=== PATIENT | male | born 1970 | race American Indian/Alaskan Native ===

== ENCOUNTER 2018-12-07 03:52 | Emergency (ER) | payer BC ==
[2018-12-07 03:59] VITALS: BP 141/89
[2018-12-07] MEDS ORDERED: NORCO 5/325 PO ONE (07:37)
[2018-12-07] MEDS ORDERED: FLEXERIL PO ONE (07:37)
[2018-12-07] MEDS ORDERED: DECADRON IM ONE (07:37)
--- NOTE | 2018-12-07 07:38 | Emergency Department Report ---
ED Back Pain/Injury HPI - General Chief Complaint: Extremity Problem,Nontraumatic Stated Complaint: LEG PAIN/NUMBNESS Time Seen by Provider: 12/07/18 07:33 Source: patient Limitations: No Limitations - History of Present Illness Initial Comments: Patient is a 48-year-old male who comes to the emergency room complaining of pain in his leg. He is denies trauma. He states that it intermittently to his lower right and lower left leg. Patient denies back pain. Patient is ambulatory and nontoxic. Vital signs are stable. He has no fever. No complaints consistent with cauda equina. Patient was given Motrin by a coworker and he states that he got some relief with that. Patient is on no medicines and denies any major medical problems. Consistency: intermittent Associated Symptoms: denies other symptoms - Related Data Previous Rx's Medication Instructions Recorded Last Taken Type Cyclobenzaprine [Flexeril] 10 mg PO TID PRN #10 tablet 12/07/18 Unknown Rx RX: predniSONE [Deltasone] 20 mg PO DAILY #5 tablet 12/07/18 Unknown Rx traMADol [Ultram] 50 mg PO Q6HR PRN #10 tablet 12/07/18 Unknown Rx Allergies Allergy/AdvReac Type Severity Reaction Status Date / Time No Known Allergies Allergy Unverified 12/07/18 04:01 ED Review of Systems ROS: Stated complaint: LEG PAIN/NUMBNESS Other details as noted in HPI Comment: All other systems reviewed and negative Constitutional: denies: chills Eyes: denies: eye pain ENT: denies: ear pain Respiratory: denies: see HPI Cardiovascular: denies: chest pain Endocrine: denies: excessive sweating Gastrointestinal: denies: nausea Genitourinary: denies: urgency Musculoskeletal: as per HPI, other. denies: back pain, joint swelling, arthralgia, myalgia Skin: denies: rash Neurological: denies: headache Psychiatric: denies: depression Hematological/Lymphatic: denies: easy bleeding ED Past Medical Hx - Past Medical History Medical history: no medical history ED Back Pain Physical Exam - Exam General: Vital signs noted. No distress. Alert and acting appropriately. Back/Abdomen: Yes Straight Leg Raise Pain (r), No Abdominal Tenderness, No Perithoracic Tenderness, No Perilumbar Tenderness, No Sacroiliac Tenderness, No Flank Tenderness Neuro: Yes Normal Sensation, Yes Normal DTR's, Yes Normal Gait, No Motor Dottie gallardo ED Course Vital Signs 12/07/18 03:57 Temperature 98.3 F Pulse Rate 82 Respiratory 18 Rate Blood Pressure 141/89 O2 Sat by Pulse 100 Oximetry ED Medical Decision Making - Medical Decision Making no trauma no s/s cauda equina neuro intact without focal neuro def ambulatory no cva tenderness vss no fever abd soft non tender pos straight leg raise medicated in ER with relief dc home with dc plan of care. Critical care attestation.: If time is entered above; I have spent that time in minutes in the direct care of this critically ill patient, excluding procedure time. ED Disposition Clinical Impression: Sciatica Disposition: DC-01 TO HOME OR SELFCARE Is pt being admited?: No Does the pt Need Aspirin: No Condition: Stable Instructions: Lumbar Radiculopathy (ED) Additional Instructions: rest warm compresses meds as ordered today follow up with pcp if persists good body mechanics Prescriptions: Cyclobenzaprine [Flexeril] 10 mg PO TID PRN #10 tablet PRN Reason: Muscle Spasm RX: predniSONE [Deltasone] 20 mg PO DAILY #5 tablet traMADol [Ultram] 50 mg PO Q6HR PRN #10 tablet PRN Reason: Pain Referrals: SERGIO GARNICA [Primary Care Provider] - 3-5 Days Forms: Work/School Release Form(ED) Time of Disposition: 07:38
== END 2018-12-07 08:18 | disposition home or self-care (01) ==
LOC: ED 03:52
DX: M54.30 Sciatica, unspecified side (principal)
CPT/HCPCS: 96372; 99282; J1100